=== PATIENT | female | born 1960 | race Asian ===

== ENCOUNTER → 2023-03-15 | Day surgery (SDC) | payer MEDICARE, MEDICAID ==
[~2023-03-15] VITALS: Ht 152.4 cm; Wt 81.6 kg
[~2023-03-15] MED LIST: ACETAZOLAMIDE SODIUM 500MG/VIAL IV ONE; ALBU6.7H15 INH; AMLO5TAB88 PO; ATOR20TA65 PO; BACL-141 PO; BALANCED SALT IRRIG SOLN COMB1 500ML OP SCH; CHOL200026 PO; CYCLOPENTOLATE HCL 1% OPHTH DROPS 2ML RIGHTEYE NR; FAMO20TA8 PO; FENTANYL CITRATE/PF 50MCG/ML 2ML VIAL ONE; FLUT16SP15 BOTHNSTRLS; HYALURONATE SODIUM 10 MG/ML 0.55ML SYRINGE IO ONE; INSU100I33 SQ; KETOROLAC 30MG/ML VIAL ONE; LORA10TA7 PO; LOSA1TAB34 PO; METF-416 PO; MIDAZOLAM HCL 2 MG/2 ML VIAL ONE; PHENYLEPHRINE HCL 10% OPHTH DROPS 5ML RIGHTEYE NR; PROPOFOL 200MG/20ML VIAL IV ONE; SODIUM CHLORIDE 0.9% 1,000 ML IV SCH; TRIAMCINOLONE ACETONIDE 40MG/ML 1ML VIAL ONE; TROPICAMIDE 1% OPHTH DROPS 15ML RIGHTEYE NR; TRYPAN BLUE 0.5 ML DISP.SYRIN IO ONE
== END | disposition home or self-care (01) ==
LOC: OR 08:40
PROVIDERS: ATTEND Ophthalmology
DX: T85.22XA Displacement of intraocular lens, initial encounter (principal); E11.36 Type 2 diabetes mellitus with diabetic cataract; H25.89 Other age-related cataract; I10 Essential (primary) hypertension; E78.00 Pure hypercholesterolemia, unspecified; Z79.84 Long term (current) use of oral hypoglycemic drugs; Z79.899 Other long term (current) drug therapy; Z98.890 Other specified postprocedural states; X58.XXXA Exposure to other specified factors, initial encounter; Y93.89 Activity, other specified; Y92.89 Other specified places as the place of occurrence of the external cause; Y99.8 Other external cause status
CPT/HCPCS: 82962; 67005; 66986; J3010; J1885; J2250; J2704; J1120; J3301; J3490; A4217; Z7610 ×21; V2630; Q9957